=== PATIENT | female | born 1940 | race Caucasian/White ===

== ENCOUNTER 2017-12-02 16:36 | Outpatient (CLI) | payer MEDICARE | END 2017-12-02 16:37 | disposition home or self-care (01) | LOC: BICRAD 16:36 | PROVIDERS: ATTEND Internal Medicine Infectious Disease | DX: R07.9 Chest pain, unspecified (principal) | CPT/HCPCS: 71046 ==

== ENCOUNTER 2019-03-16 14:37 | Outpatient (CLI) | payer MEDICARE, OTHER ==
--- NOTE | 2019-03-16 15:34 | BD ---
DEXA SCAN 03/16/19 PROVIDED CLINICAL HISTORY: Osteoporosis. Lumbar Spine: BMD (g/cm2) T-SCORE L1 0.873 -1.1 L2 0.937 -0.8 L3 1.242 1.4 L4 1.261 1.8 L1-L4 1.089 0.4 Femoral Neck: 0.639 -1.9 Total Femur: 0.742 -1.6 Ten year fracture risk: Major osteoporotic fracture 13%. Hip fracture 3.2%. Impression: Calculated bone mineral density in the left femoral neck meets WHO criteria for osteopenia and places the patient as increased risk for fracture. POS: [facility]
== END 2019-03-16 14:38 | disposition home or self-care (01) ==
LOC: BICMAMMO 14:37
PROVIDERS: ATTEND Nurse Practitioner Family
DX: Z13.820 Encounter for screening for osteoporosis (principal); M85.852 Other specified disorders of bone density and structure, left thigh
CPT/HCPCS: 77080

== ENCOUNTER 2019-05-16 15:30 | Outpatient (CLI) | payer MEDICARE, OTHER ==
--- NOTE | 2019-05-16 17:01 | RAD ---
EXAM: CHEST TWO VIEWS: 05/16/19 HISTORY: COPD. COMPARISON: 07/15/16. FINDINGS: Bilateral linear and interstitial and reticulonodular parenchymal changes, particularly in the right upper lobe and right and left lung bases are noted. Evidence for chronic lung change. Small hiatal h ernia. No new confluent pneumonia, overt edema, or pleural effusion. IMPRESSION: Stable reticulonodular parenchymal changes bilaterally. Evidence for a hiatal hernia. No significant new process. POS: [facility]
== END 2019-05-16 15:31 | disposition home or self-care (01) ==
LOC: RAD-FRANK 15:30
PROVIDERS: ATTEND Nurse Practitioner Family
DX: J44.9 Chronic obstructive pulmonary disease, unspecified (principal); K44.9 Diaphragmatic hernia without obstruction or gangrene
CPT/HCPCS: 71046

== ENCOUNTER 2021-04-01 16:13 | Outpatient (CLI) | payer MEDICARE, OTHER | END 2021-04-01 16:14 | disposition home or self-care (01) | LOC: RAD-FRANK 16:13 | PROVIDERS: ATTEND Nurse Practitioner Family | DX: J47.9 Bronchiectasis, uncomplicated (principal) | CPT/HCPCS: 71046 ==

== ENCOUNTER 2022-09-23 10:17 | Outpatient (CLI) | payer MEDICARE, OTHER | END 2022-09-23 10:18 | disposition home or self-care (01) | LOC: RAD-FRANK 10:17 | PROVIDERS: ATTEND Nurse Practitioner Family | DX: R05.2 Subacute cough (principal); R91.8 Other nonspecific abnormal finding of lung field; J47.9 Bronchiectasis, uncomplicated | CPT/HCPCS: 71046 ==

== ENCOUNTER 2022-10-08 12:32 | Outpatient (CLI) | payer MEDICARE, OTHER | END 2022-10-08 12:33 | disposition home or self-care (01) | LOC: BICCT 12:32 | PROVIDERS: ATTEND Nurse Practitioner Family | DX: J15.7 Pneumonia due to Mycoplasma pneumoniae (principal) | CPT/HCPCS: 71260; 82565 ==

== ENCOUNTER 2022-12-25 04:50 | Inpatient (IN) | payer MEDICARE, OTHER ==
[2022-12-25 06:40] VITALS: BMI 23.6
[2022-12-25] MEDS ORDERED: Ondansetron PF 4 MG/2 ML Vial IVP PRN (07:37)
[2022-12-25] MEDS ORDERED: Bisacodyl 10 MG SUPP PR PRN (07:37)
[2022-12-25] MEDS ORDERED: Acetaminophen 325 MG TAB PO PRN (07:37)
[2022-12-25] MEDS ORDERED: Bisacodyl 5 MG TAB PO PRN (07:37)
[2022-12-25] MEDS ORDERED: Senokot S 8.6-50 MG TAB PO PRN (07:37)
[2022-12-25] MEDS: Cefepime 2 GM in Sodium Chloride 0.9% 100 ML IVPB SCH ×2 (09:22→21:43)
[2022-12-25] MEDS: Azithromycin 500 MG in Sodium Chloride 0.9% 250 ML 250 ML IVPB SCH (09:22)
[2022-12-25] MEDS ORDERED: Non-Formulary Item 1 EACH (Levothyroxine Sodium [Levothyroxine] 88 MCG Capsule) PO SCH (10:19)
[2022-12-25] MEDS ORDERED: Non-Formulary Item 1 EACH (Omeprazole [Omeprazole] 20 MG Capsule.Dr) PO SCH (10:20)
[2022-12-25] MEDS ORDERED: Aspirin 81 mg Enteric Coated Tablet PO SCH ×2 (10:20→10:30)
[2022-12-25] MEDS ORDERED: Levothyroxine Sodium 88 MCG TAB PO SCH (10:30)
[2022-12-25] MEDS: Ipratropium/Albuterol 3 ML NEB NEB SCH ×2 (10:42→18:45)
[2022-12-25] MEDS: methylPREDNISolone Sod Succ 40 MG VIAL IVP SCH ×3 (12:06→23:38)
[2022-12-25] MEDS ORDERED: Ipratropium/Albuterol 3 ML NEB NEB SCH (13:00)
[2022-12-25] MEDS: Ipratropium/Albuterol 3 ML NEB NEB PRN ×2 (14:28→23:37)
[2022-12-25] MEDS: Mometasone/Formoterol 200/5 60 PUFF INH SCH (18:46)
[2022-12-25] MEDS ORDERED: Pravastatin Sodium 20 MG TAB PO SCH (21:00)
[2022-12-25] MEDS: Simvastatin 10 MG TAB PO SCH (21:46)
[2022-12-25 22:20] LABS: Legionella Urinary Ag Negative (Negative)
[2022-12-26] MEDS: Ipratropium/Albuterol 3 ML NEB NEB SCH ×4 (00:55→18:32)
[2022-12-26] MEDS: Melatonin 3 MG TAB PO PRN ×2 (01:55→22:01)
[2022-12-26] MEDS ORDERED: Cepastat Lozenges 1 LOZ PO PRN (03:52)
[2022-12-26] MEDS: Levothyroxine Sodium 88 MCG TAB PO SCH (06:08)
[2022-12-26] MEDS: methylPREDNISolone Sod Succ 40 MG VIAL IVP SCH ×4 (06:08→22:01)
[2022-12-26] MEDS: Mometasone/Formoterol 200/5 60 PUFF INH SCH ×2 (07:21→18:32)
[2022-12-26 08:10] LABS: #Lymphocytes 0.6 thou/uL (1.20-3.40); #Monocytes 0.3 thou/uL (0.11-0.59); #Neutrophils 7.4 thou/uL (1.40-6.50); %Eosinophils 0.3 % (0.0-10.0); %Monocytes 3.6 % (0.0-10.0); %Neutrophils 89.2 % (42.0-75.0); Hemoglobin 11.4 g/dL (12.0-16.0); Mean Corpuscular Volume 84.9 fl (78.0-98.0); Mean Platelet Volume 7.5 fL (7.4-10.4); Platelet Count 170 10x3/uL (130-400); RBC Distribution Width 12.6 % (11.5-14.5); Red Blood Cell (RBC) Count 4.08 mill/uL (4.20-5.40); White Blood Cell (WBC) Count 8.3 10x3/uL (4.8-10.8)
[2022-12-26] MEDS: Cefepime 2 GM in Sodium Chloride 0.9% 100 ML IVPB SCH ×2 (08:19→20:54)
[2022-12-26] MEDS: Aspirin 81 mg Enteric Coated Tablet PO SCH (08:20)
[2022-12-26 08:26] LABS: Hemoglobin A1c 5.5 % (4.0-6.0)
[2022-12-26 08:27] LABS: Anion Gap 15 mmol/L (10-20); BUN (Urea Nitrogen) 14 mg/dL (9.8-20.1); Calc. Creatinine Clearance 61 mL/min (70-130); Calcium 8.8 mg/dL (7.8-10.44); Carbon Dioxide 20 mmol/L (23-31); Chloride 103 mmol/L (98-107); Estimated GFR 78; Glucose 133 mg/dL (83-110); Magnesium 2.4 mg/dL (1.6-2.6); Potassium 4.1 mmol/L (3.5-5.1); Sodium 134 mmol/L (136-145)
[2022-12-26] MEDS ORDERED: methylPREDNISolone Sod Succ 40 MG VIAL IVP SCH (09:00)
[2022-12-26] MEDS ORDERED: Chloraseptic Spray 180 ml Bottle PO PRN (09:21)
[2022-12-26] MEDS: Azithromycin 500 MG in Sodium Chloride 0.9% 250 ML 250 ML IVPB SCH (11:30)
[2022-12-26] MEDS: Benzonatate 100 MG CAP PO PRN ×3 (12:55→21:58)
[2022-12-26] MEDS: Simvastatin 10 MG TAB PO SCH (20:54)
[2022-12-27] MEDS: Ipratropium/Albuterol 3 ML NEB NEB SCH ×3 (00:19→12:09)
[2022-12-27] MEDS: methylPREDNISolone Sod Succ 40 MG VIAL IVP SCH ×2 (06:23→12:11)
[2022-12-27] MEDS: Levothyroxine Sodium 88 MCG TAB PO SCH (06:23)
[2022-12-27 07:10] LABS: #Lymphocytes 0.9 thou/uL (1.20-3.40); #Monocytes 0.4 thou/uL (0.11-0.59); #Neutrophils 9.8 thou/uL (1.40-6.50); %Basophils 0.1 % (0.0-1.0); %Eosinophils 0.3 % (0.0-10.0); %Lymphocytes 7.8 % (21.0-51.0); %Monocytes 3.9 % (0.0-10.0); %Neutrophils 87.9 % (42.0-75.0); Hemoglobin 11.3 g/dL (12.0-16.0); Mean Corpuscular HGB CONC 33.3 g/dL (32.0-36.0); Mean Corpuscular Hemoglobin 28.4 pg (27.0-31.0); Mean Corpuscular Volume 85.3 fl (78.0-98.0); Mean Platelet Volume 7.3 fL (7.4-10.4); Platelet Count 194 10x3/uL (130-400); RBC Distribution Width 12.7 % (11.5-14.5); Red Blood Cell (RBC) Count 3.98 mill/uL (4.20-5.40); White Blood Cell (WBC) Count 11.2 10x3/uL (4.8-10.8)
[2022-12-27 07:16] VITALS: TEMP 98.3
[2022-12-27 07:33] LABS: Anion Gap 13 mmol/L (10-20); BUN (Urea Nitrogen) 17 mg/dL (9.8-20.1); Calc. Creatinine Clearance 62 mL/min (70-130); Calcium 8.8 mg/dL (7.8-10.44); Carbon Dioxide 20 mmol/L (23-31); Chloride 105 mmol/L (98-107); Estimated GFR 79; Glucose 127 mg/dL (83-110); Magnesium 2.6 mg/dL (1.6-2.6); Potassium 3.9 mmol/L (3.5-5.1); Sodium 134 mmol/L (136-145)
[2022-12-27] MEDS: Mometasone/Formoterol 200/5 60 PUFF INH SCH (07:40)
[2022-12-27] MEDS: Azithromycin 500 MG in Sodium Chloride 0.9% 250 ML 250 ML IVPB SCH (08:58)
[2022-12-27] MEDS: Aspirin 81 mg Enteric Coated Tablet PO SCH (08:59)
[2022-12-27] MEDS: Cefepime 2 GM in Sodium Chloride 0.9% 100 ML IVPB SCH (12:14)
[2022-12-27 13:50] VITALS: BP 148/74
[2022-12-28] MEDS ORDERED: Azithromycin 250 MG TAB PO SCH (09:00)
== END 2022-12-27 13:54 | disposition home or self-care (01) | DRG 193 ==
LOC: T4-A 06:14
PROVIDERS: ADMIT Student in an Organized Health Care Education/Training Program; ATTEND Internal Medicine
DX: J18.9 Pneumonia, unspecified organism (principal); J96.01 Acute respiratory failure with hypoxia; E87.1 Hypo-osmolality and hyponatremia; J44.0 Chronic obstructive pulmonary disease with (acute) lower respiratory infection; J44.1 Chronic obstructive pulmonary disease with (acute) exacerbation; K21.9 Gastro-esophageal reflux disease without esophagitis; D64.9 Anemia, unspecified; D69.6 Thrombocytopenia, unspecified; R73.9 Hyperglycemia, unspecified; Z20.822 Contact with and (suspected) exposure to COVID-19; T38.0X5A Adverse effect of glucocorticoids and synthetic analogues, initial encounter; E03.9 Hypothyroidism, unspecified; K44.9 Diaphragmatic hernia without obstruction or gangrene; Z79.82 Long term (current) use of aspirin; Z79.899 Other long term (current) drug therapy; Z98.890 Other specified postprocedural states
CPT/HCPCS: 36415; 36416; 80048; 83036; 83735; 84443; 85025; 87081; 87899; 94640; 94667; 94668; J0456; J0692; J1650; J2920; J3490; J7050; J7620

== ENCOUNTER 2023-01-28 11:37 | Outpatient (CLI) | payer MEDICARE, OTHER | END 2023-01-28 11:38 | disposition home or self-care (01) | LOC: RAD-FRANK 11:37 | PROVIDERS: ATTEND Nurse Practitioner Family | DX: R05.9 Cough, unspecified (principal) | CPT/HCPCS: 71046 ==

== ENCOUNTER 2023-06-18 08:29 | Outpatient (CLI) | payer MEDICARE, OTHER | END 2023-06-18 08:30 | disposition home or self-care (01) | LOC: RAD-FRANK 08:29 | PROVIDERS: ATTEND Nurse Practitioner Family | DX: R05.1 Acute cough (principal) | CPT/HCPCS: 71046 ==